=== PATIENT | male | born 1980 | race Caucasian/White ===

== ENCOUNTER 2018-12-04 13:40 | Emergency (ER) | payer SELFPAY ==
[2018-12-04] MEDS ORDERED: Amoxicillin/Clavulanate K 875-125 MG Tab ONE (14:00)
[2018-12-04] MEDS ORDERED: Diphtheria,Pertussis(Acell),Tetanus Vaccine 0.5 ML SDV inactive IM ONE (14:30)
--- NOTE | 2018-12-04 16:33 | EDM.PDOC ---
ED HPI GENERAL MEDICAL PROBLEM - General Chief Complaint: General Stated Complaint: CUT HAND Time Seen by Provider: 12/04/18 13:50 Source of Information: Reports: Patient, Other History Limitations: Reports: No Limitations - History of Present Illness INITIAL COMMENTS - FREE TEXT/NARRATIVE: 38 yr male presents with blunt laceration to left hand at the distal metacarpal joint to the third finger, from working on the truck and injury with wrench. He is left handed dominant. This happened about 30 minutes prior. States he was alone when this happened, but called his Dad and he came. Pt lives in [place]. He can't remember the last tetanus vaccine. 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: iced the wound - Related Data Allergies Allergy/AdvReac Type Severity Reaction Status Date / Time No Known Allergies Allergy Verified 12/04/18 14:00 ED ROS GENERAL - Review of Systems Review Of Systems: See Below Constitutional: Reports: No Symptoms HEENT: Reports: No Symptoms Respiratory: Reports: No Symptoms Cardiovascular: Reports: No Symptoms Musculoskeletal: Reports: Other (left hand pain and swelling from injury) Skin: Reports: Other (cut to left hand/knuckle area) Neurological: Reports: No Symptoms Psychiatric: Reports: No Symptoms Hematologic/Lymphatic: Reports: No Symptoms Immunologic: Reports: No Symptoms ED EXAM, GENERAL - Physical Exam Exam: See Below Exam Limited By: No Limitations General Appearance: Alert, No Apparent Distress, Anxious Ears: Hearing Grossly Normal Head: Atraumatic, Normocephalic Respiratory/Chest: No Respiratory Distress Extremities: Normal Range of Motion, Normal Capillary Refill, Other (good finger to thumb movement and makes fist easily.) Neurological: Alert, Oriented, Normal Cognition Psychiatric: Normal Affect, Normal Mood Skin Exam: Warm, Dry, Normal Color, Wound/Incision. No: Erythema (Mild swelling noted to left hand at distal phalange joint. 1.5 cm X 0.25 cm half otero shaped superficial laceration to third finger, distal phalange joint of left hand.) ED GENERAL MEDICAL PROCEDURES - Laceration/Wound Repair Left Distal Dorsal Digit - 3rd (Middle) Appearance: Superficial, Other (laceration is otero shaped to distal phalange joint area of left hand, 3rd finger.) Distal NVT: Neuro & Vascular Intact, No Tendon Injury Anesthetic Type: Local Local Anesthesia - Lidocaine (Xylocaine): 1% Plain Local Anesthetic Volume: 2cc Skin Prep: Providone-Iodine (Betadine), Saline, Sterile Drape Saline irrigation (cc's): 20 Exploration/Debridement/Repair: Wound Explored, No Foreign Material Found Closed with: Sutures Suture Size: 4-0 # of Sutures: 4 Suture Type: Nylon Course - Vital Signs Last Recorded V/S: Last Vital Signs Temp 97.5 F 12/04/18 14:08 Pulse 65 12/04/18 14:40 Resp 10 L 12/04/18 14:40 BP 120/65 12/04/18 14:40 Pulse Ox - Orders/Labs/Meds Orders: Active Orders 24 hr Category Date Time Status Vaccines to be Administered [RC] PER UNIT ROUTINE Care 12/04/18 15:39 Active Meds: Medications Discontinued Medications Generic Name Dose Route Start Last Admin Trade Name Max PRN Reason Stop Dose Admin Diphtheria/Tetanus/Acell Pertussis 0.5 ml 12/04/18 14:30 12/04/18 14:45 Boostrix IM 12/04/18 14:31 0.5 ml .ONCE ONE Administration Lidocaine HCl 5 ml 12/04/18 13:55 12/04/18 13:50 Xylocaine-Mpf 1% INJECT 12/04/18 13:56 5 ml ONETIME ONE Administration - Re-Assessments/Exams Free Text/Narrative Re-Assessment/Exam: 12/04/18 16:40 LE Laceration repair completed without incidence, pt tolerated well. 4 sutures applied using sterile technique. Pressure dressing applied, recommend elevate and use of ice to area 3-5x/day as needed. Tetanus vaccine updated. Rx start for Augmentin 1 tab bid X 5 days to prevent any infection. Discharge instruction reviewed with pt, Recommend suture removal in 10-14 days. Departure - Departure Time of Disposition: 14:50 Disposition: Home, Self-Care 01 Condition: Good Clinical Impression: Laceration - Discharge Information *PRESCRIPTION DRUG MONITORING PROGRAM REVIEWED*: Not Applicable *COPY OF PRESCRIPTION DRUG MONITORING REPORT IN PATIENT GOOD: Not Applicable Instructions: Amoxicillin; Clavulanic Acid tablets, Laceration Care, Adult, [id number] Referrals: PCP,None [Primary Care Provider] - Forms: ED Department Discharge - My Orders Last 24 Hours: My Active Orders 12/04/18 15:39 Vaccines to be Administered [RC] PER UNIT ROUTINE - Assessment/Plan Last 24 Hours: My Active Orders 12/04/18 15:39 Vaccines to be Administered [RC] PER UNIT ROUTINE Plan: Pressure dressing applied, recommend elevate and use of ice to area 3-5x/day as needed. Tetanus vaccine updated. Rx start for Augmentin 1 tab bid X 5 days to prevent any infection. Discharge instruction reviewed with pt, Recommend suture removal in 10-14 days.
== END 2018-12-04 14:50 | disposition home or self-care (01) ==
LOC: LB.ED 13:40
DX: S61.213A Laceration without foreign body of left middle finger without damage to nail, initial encounter (principal); Z23 Encounter for immunization; W26.8XXA Contact with other sharp object(s), not elsewhere classified, initial encounter; Y99.0 Civilian activity done for income or pay
CPT/HCPCS: 12001; 90471; 90715; 99282; A9270; J2001